=== PATIENT | female | born 1980 | race Caucasian/White ===

== ENCOUNTER 2017-06-16 21:09 | Emergency (ER) | payer OTHER ==
[~2017-06-16] VITALS: Ht 165.1 cm; Wt 65.0 kg
[2017-06-16 21:13] VITALS: BP 133/79; PULSE 115; RESP 20; TEMP 98.2; O2SAT 100
[2017-06-16] MEDS ORDERED: TETANUS/DIPHTHERIA TOXOID ADULT 0.5 ML VIAL IM ONE (22:15)
[2017-06-16] MEDS ORDERED: ACETAMINOPHEN/HYDROcodone 325 MG/5 MG TAB PO ONE (22:15)
[2017-06-16] MEDS ORDERED: AMOXICILLIN/CLAVULANATE K 875 MG TAB PO ONE (22:15)
--- NOTE | 2017-06-16 22:20 | PD ---
HPI Chief Complaint: Fall Time Seen by Provider: 22:03 Travel History International Travel<30 days: No Contact w/Intl Traveler<30days: No Traveled to known affect area: No History of Present Illness HPI 37-year-old white female presents emergency department by EMS for evaluation of a slip and fall in the shower prior to arrival. The patient states that she struck her face but does not recall losing consciousness. She denies any neck or back pain. He complains of facial pain and a laceration to the bridge of her nose. She has not had a tetanus shot over 5 years. She does admit to having nausea and an episode of vomiting. No diplopia. No dental injury or malocclusion. Positive epistaxis. She denies any amnesia. Symptoms are mild to moderate. Worsened by falling in the shower. No alleviating activity. Patient admits to alcohol earlier in the day. PFSH Past Medical History Medical History: Denies Significant Hx Tetanus Vaccination: > 5 Years ?: Not LMP: "ABOUT A WEEK AGO" Past Surgical History Narrative Surgical Breast augmentation Other Surgery: Yes ("BREAST") Social History Alcohol Use: Yes Tobacco Use: No Substance Use: No Allergies-Medications (Allergen,Severity, Reaction): Coded Allergies: No Known Allergies (Unverified , 06/16/17) Reported Meds & Prescriptions Reported Meds & Active Scripts Active Lorcet (Hydrocodone-Acetaminophen) 5-325 mg Tab 1 Tab PO Q6H PRN 5 Days Augmentin (Amoxicillin-Clavulanate) 875-125 Mg Tab 1 Tab PO BID Review of Systems General / Constitutional: No: Fever Eyes: No: Visual changes HENT: Positive: Congestion, Nosebleed, No: Headaches, Neck Stiffness, Neck Pain , Gingival Bleeding, Dental Difficulties, Ear Discharge Cardiovascular: No: Chest Pain or Discomfort, Tachycardia Respiratory: No: Shortness of Breath Gastrointestinal: Positive: Nausea, Vomiting (1), No: Abdominal Pain Genitourinary: No: Dysuria Musculoskeletal: No: Myalgias, Arthralgias, Limited ROM, Pain Skin: No Rash Neurologic: Positive: Headache, No: Weakness, Dizziness, Syncope, Focal Abnormalities, Coordination Problem, Ataxia, Change in Mentation, Slurred Speech , Paresthesia, Seizures, Sensory Disturbance Psychiatric: No: Depression Endocrine: No: Polydipsia Hematologic/Lymphatic: No: Easy Bruising Physical Exam Narrative GENERAL: Well-developed, well-nourished in no apparent distress. Nontoxic appearing. HEAD: Patient has facial swelling involving the bridge of the nose with a 6 mm laceration to the left nasal bridge with deviation to the right. Swelling is mild. Minimal oozing. Patient has no pain in the forehead, maxilla or mandible. EYES: Pupils equal round and reactive. Extraocular motions intact. No scleral icterus. No injection or drainage. ENT: Nose reveals tenderness in the laceration as described above. She has blood in both nostrils without active bleeding. There is no septal hematoma. Unable to assess deviation. Elling. Throat without erythema, tonsillar hypertrophy or exudate. Uvula midline. Airway patent. No dental injury or malocclusion. NECK: Trachea midline. Supple, nontender, moves head freely. No central bony tenderness or spasm. CARDIOVASCULAR: Regular rate and rhythm without murmurs, gallops, or rubs. RESPIRATORY: Clear to auscultation. Breath sounds equal bilaterally. No wheezes , rales, or rhonchi. GASTROINTESTINAL: Abdomen soft, non-tender, nondistended. No hepato-splenomegaly , or palpable masses. No guarding. EXTREMITIES: No clubbing, cyanosis, or edema. No joint tenderness. BACK: Nontender without deformity. No flank tenderness. NEUROLOGICAL: Awake, alert and oriented x 3 .Cranial nerves grossly intact. Motor and sensory grossly within normal limits. Normal speech. Data Data Last Documented VS Vital Signs Date Time Temp Pulse Resp B/P (MAP) Pulse Ox O2 Delivery O2 Flow Rate FiO2 06/16/17 21:13 98.2 115 20 133/79 (97) [address] Brain W/O Iv Contrast(Rout) (06/16/17 22:12) Ct Facial Bones W/O Iv Cont (06/16/17 22:12) Ice/Cold Pack (06/16/17 22:12) Acetamin-Hydrocod 325-5 Mg ([place] 5-325 (06/16/17 22:15) Amoxicil-Clavulanate (Augmentin) (06/16/17 22:15) Tetanus/Diphtheria Tox Adult (Tetanus/Di (06/16/17 22:15) Ed Discharge Order (06/16/17 23:42) MDM Medical Decision Making Medical Screen Exam Complete: Yes Emergency Medical Condition: Yes Medical Record Reviewed: Yes Interpretation(s) CT brain: Negative for acute intracranial injury. CT facial bones: Comminuted nasal fracture. Differential Diagnosis MDM: High Differential diagnoses: Fracture, sprain, strain, dislocation, contusion, neurovascular injury Narrative Course Patient is given [place] 5 mg p.o. CAT scan of the brain and facial bones. Ice pack applied. Tetanus immunization updated. Keflex Augmentin 875 mg p.o. Patient's lacerations closed with sutures. Procedures Procedure Narrative LACERATION LOCATION: Left nasal bridge LENGTH: 0.6 cm NUMBER OF STITCHES/GINA: 2 REPAIR: The area of the laceration was prepped with Betadine and sterilely draped. The laceration was infiltrated with 1% lidocaine with epinephrine. The wound was copiously irrigated and explored without evidence of foreign body , tendon injury or neurovascular injury. The wound was closed using 5-0 plain gut. This was a simple single layer repair. A sterile dressing was applied. The patient was advised to keep the dressing clean and dry. Patient tolerated the procedure well. Diagnosis Primary Impression: Open nasal fracture Additional Impressions: Facial laceration Fall Patient Instructions: General Instructions, Narcotic given in the ED Additional Instructions: Rest. Head precautions. No nose blowing. Medications as directed Ice packs. Avoid alcohol. Avoid all sedating or intoxicating substances. Recheck with your physician within 2-3 days. Follow-up with a ENT or maxillofacial surgeon in the next 3-5 days. Return to the ER for any problems. Med/Other Pt SpecificInfo: Prescription(s) given, Wound Care Scripts Hydrocodone-Acetaminophen ([place]orcet) 5-325 mg Tab 1 TAB PO Q6H Y for PAIN for 5 Days, #20 TAB 0 Refills Prov: Albert Vicente MD 06/16/17 Amoxicillin-Clavulanate (Augmentin) 875-125 Mg Tab 1 TAB PO BID for Infection, #10 TAB 0 Refills Prov: Albert Vicente MD 06/16/17 Disposition: 01 DISCHARGE HOME Condition: Stable Ilir Ortiz Jun 16, 2017 22:20
--- NOTE | 2017-06-16 23:08 | RADRPT ---
EXAM DATE/TIME: 06/16/2017 22:49 [facility] COMPARISON: No previous studies available for comparison. INDICATIONS : Trauma. Fell on face in shower. RADIATION DOSE: 45.79 CTDIvol (mGy) MEDICAL HISTORY : None SURGICAL HISTORY : None. ENCOUNTER: Initial ACUITY: 1 day PAIN SCALE: 9/10 LOCATION: cranial TECHNIQUE: Multiple contiguous axial images were obtained of the head. Using automated exposure control and adj ustment of the mA and/or kV according to patient size, radiation dose was kept as low as reasonably a chievable to obtain optimal diagnostic quality images. DICOM format image data is available electro nically for review and comparison. FINDINGS: CEREBRUM: The ventricles are normal for age. No evidence of midline shift, mass lesion, hemorrhage or acute in farction. No extra-axial fluid collections are seen. POSTERIOR FOSSA: The cerebellum and brainstem are intact. The 4th ventricle is midline. The cerebellopontine angle i s unremarkable. EXTRACRANIAL: The visualized portion of the orbits is intact. Comminuted nasal bone fractures present. SKULL: The calvaria is intact. No evidence of skull fracture. CONCLUSION: 1. Comminuted nasal bone fracture. Please see facial bone study for further details. 2. No intracranial hemorrhage or mass effect. Jeyson Major MD on June 16, 2017 at 23:06 Board Certified Radiologist. This report was verified electronically.
--- NOTE | 2017-06-16 23:10 | RADRPT ---
EXAM DATE/TIME: 06/16/2017 22:49 [facility] COMPARISON: No previous studies available for comparison. INDICATIONS : Trauma. Fell on face in shower. RADIATION DOSE: 35.97 CTDIvol (mGy) MEDICAL HISTORY : None SURGICAL HISTORY : None. ENCOUNTER: Initial ACUITY: 1 day PAIN SCORE: 9/10 LOCATION: facial TECHNIQUE: Volumetric scanning of the facial bones was performed. Using automated exposure control and adjustme nt of the mA and/or kV according to patient size, radiation dose was kept as low as reasonably achiev able to obtain optimal diagnostic quality images. DICOM format image data is available electronicall y for review and comparison. FINDINGS: ORBITS: The orbital and infraorbital osseous structures are intact. The retroconal structures have a normal configuration. No radiopaque foreign bodies are seen. NASAL BONE: There is a comminuted nasal bone fracture with multiple fracture fragments and overlying soft tissue swelling . ZYGOMATIC ARCHES: Symmetric without evidence of fracture. SINUSES: The maxillary, ethmoid and frontal sinuses are intact. Mucosal thickening is noted in the maxillary s inuses right greater than left as well as several anterior ethmoidal air cells. No air-fluid levels i dentified. NASAL CAVITY: The nasal septum is intact and midline. The lacrimal ducts are intact. SOFT TISSUES: No radiopaque foreign bodies seen. No soft-tissue swelling is seen. INTRACRANIAL: No intracranial air seen. CRIBIFORM PLATE: Grossly intact. CONCLUSION: 1. Comminuted nasal bone fracture with overlying soft tissue swelling. 2. No other facial bone fractures. Jeyson Major MD on June 16, 2017 at 23:07 Board Certified Radiologist. This report was verified electronically.
[2017-06-16] MEDS ORDERED: AUGM875T3 PO (23:43)
[2017-06-16] MEDS ORDERED: HYDR-3576 PO (23:43)
[2017-06-17] MEDS ORDERED: KETOROLAC TROMETHAMINE 60 MG/2 ML (IM) VIAL IM ONE (00:15)
== END 2017-06-17 00:25 | disposition home or self-care (01) ==
LOC: NEPD 21:09
DX: S02.2XXA Fracture of nasal bones, initial encounter for closed fracture (principal); S01.21XA Laceration without foreign body of nose, initial encounter; R11.2 Nausea with vomiting, unspecified; W18.2XXA Fall in (into) shower or empty bathtub, initial encounter; Y93.E1 Activity, personal bathing and showering; Y92.002 Bathroom of unspecified non-institutional (private) residence as the place of occurrence of the external cause; Z88.0 Allergy status to penicillin; Z23 Encounter for immunization
CPT/HCPCS: 12011; 70450; 70486; 90471; 90714; 96372; 99283; J1885